=== PATIENT | male | born 1940 | race Caucasian/White ===

== ENCOUNTER 2022-03-15 09:41 | Outpatient (CLI) | payer MEDICARE, BC, SELFPAY ==
--- NOTE | 2022-03-15 10:15 | CRLHL7_ITS ---
For Patients: As a result of the Century Cures Act, medical imaging exams and procedure reports are released immediately into your electronic medical record. You may view this report before your referring provider. If you have questions, please contact your health care provider. INDICATION: Parkinsonism. TECHNIQUE: Multiplanar multisequence noncontrast MR images acquired through the brain. COMPARISON: None. FINDINGS: Prominence of the ventricles and sulci compatible with mild diffuse cerebral volume loss. No mass effect or midline shift. Scattered and patchy T2 FLAIR hyperintensities in the supratentorial white matter, typical for ouch-iy-sttmtkss chronic microvascular ischemic changes. No intracranial hemorrhage or pathologic extra-axial fluid collection. No diffusion restriction to suggest acute infarction. The major arterial flow voids of the skullbase are preserved. The globes are symmetric. Small left maxillary and left frontal sinus retention cysts. Mild paranasal sinus mucosal thickening. Minimal mastoid fluid bilaterally. IMPRESSION: 1. No acute infarction, mass effect, or intracranial hemorrhage. 2. Fcte-yg-ripsbzki chronic microvascular ischemic changes and mild diffuse cerebral volume loss. Dictated by Blyane Stoll MD @ 03/15/2022 12:50:51 PM (Electronically Signed)
== END 2022-03-15 09:42 | disposition home or self-care (01) ==
LOC: MRI 09:45
PROVIDERS: PCP Family Medicine; Visit Provider Psychiatry & Neurology Neurology
DX: G20 Parkinson's disease (principal); I67.82 Cerebral ischemia
CPT/HCPCS: 70551

== ENCOUNTER 2022-04-28 15:11 | Outpatient (CLI) | payer MEDICARE, BC, SELFPAY ==
--- NOTE | 2022-04-28 15:30 | CRLHL7_ITS ---
For Patients: As a result of the Century Cures Act, medical imaging exams and procedure reports are released immediately into your electronic medical record. You may view this report before your referring provider. If you have questions, please contact your health care provider. Indication: Bilateral leg weakness Technique: Multiplanar, multisequence, MRI of the lumbar spine, obtained without contrast. Comparison: MRI lumbar spine 05/10/2019 Findings: Lumbar levo curvature apex at L4. Grade 1 retrolisthesis at L2-3. No evidence of acute fracture. Multilevel degenerative endplate marrow signal changes, disc height loss, and facet arthropathy. The conus medullaris terminates at approximately L1. No suspicious findings in the prevertebral and paraspinal soft tissues. Included SI joints are unremarkable. T12-L1: No significant neural foramen or spinal canal stenosis. L1-L2: Disc bulge, facet arthropathy. No significant foraminal stenosis. Left lateral recess narrowing without significant central spinal canal stenosis. L2-L3: Retrolisthesis, disc bulge, facet arthropathy. No significant foraminal or spinal canal stenosis. L3-L4: Disc-osteophyte complex, facet arthropathy. No significant foraminal stenosis. Right lateral recess stenosis likely impinging the transiting right L4 nerve root. No central spinal canal stenosis. L4-L5: Disc-osteophyte complex, facet arthropathy. Mild left, moderate-severe right foraminal stenosis. Right lateral recess narrowing. No central spinal canal stenosis. L5-S1: Disc-osteophyte complex, facet arthropathy. Moderate right foraminal stenosis. No spinal canal stenosis. Impression: 1. No evidence of acute osseous abnormality. 2. Lumbar spondylosis, with levo curvature, apex at L4, and grade 1 retrolisthesis at L2-3. 3. At L3-4, right lateral recess stenosis with possible impingement of the transiting right L4 nerve root. 4. At L4-5, moderate-severe right foraminal stenosis with flattening of the exiting right L4 nerve root. 5. At L5-S1, moderate right foraminal stenosis. Dictated by Blanca Andrade MD @ 04/29/2022 1:07:06 PM (Electronically Signed)
== END 2022-04-28 15:12 | disposition home or self-care (01) ==
LOC: MRI 15:11
PROVIDERS: PCP Family Medicine; Visit Provider Family Medicine
DX: R29.898 Other symptoms and signs involving the musculoskeletal system (principal); M51.26 Other intervertebral disc displacement, lumbar region
CPT/HCPCS: 72148

== ENCOUNTER 2022-07-22 09:21 | Outpatient (CLI) | payer MEDICARE, BC, SELFPAY ==
--- NOTE | 2022-07-22 10:00 | CRLHL7_ITS ---
For Patients: As a result of the Century Cures Act, medical imaging exams and procedure reports are released immediately into your electronic medical record. You may view this report before your referring provider. If you have questions, please contact your health care provider. 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 TECHNIQUE: CTA head with contrast bolus tracking and 3D MIP reconstruction. FINDINGS: There is marked tortuosity of the intracranial vasculature. The distal cervical ICAs are tortuous, redundant and ectatic. There is otherwise normal opacification of the intracranial vasculature. There is no large vessel occlusion. No aneurysm is identified. IMPRESSION: No brain aneurysm. Please note that all CT scans at this facility use dose modulation, iterative reconstruction, and/or weight-based dosing when appropriate to reduce radiation dose to as low as reasonably achievable. Dictated by Mhaendra Cali MD @ 07/22/2022 1:39:45 PM (Electronically Signed)
[2022-07-22 10:07] LABS: Creatinine* 1.1 mg/dL (0.5-1.5); Estimated Glomerular Filt Rate 68 ml/min
== END 2022-07-22 09:22 | disposition home or self-care (01) ==
LOC: CT 09:24
PROVIDERS: PCP Family Medicine; Visit Provider Psychiatry & Neurology Neurology
DX: G52.9 Cranial nerve disorder, unspecified (principal); G20 Parkinson's disease
CPT/HCPCS: 36415; 70496; 82565; Q9967

== ENCOUNTER 2022-07-28 15:00 | Outpatient (RCR) | payer MEDICARE, BC, SELFPAY | END 2023-02-02 23:59 | disposition home or self-care (01) | PROVIDERS: PCP Family Medicine; Visit Provider Psychiatry & Neurology Neurology | DX: G20 Parkinson's disease (principal); R49.0 Dysphonia; Z51.89 Encounter for other specified aftercare | CPT/HCPCS: 36415; 70551; 92507; 92524; 97110; 97112; 97116; 97162; 97530 ==

== ENCOUNTER 2022-07-28 15:57 | Outpatient (REF) | payer MEDICARE, BC, SELFPAY | END 2022-07-28 15:58 | disposition home or self-care (01) | LOC: NPINS 15:57 | PROVIDERS: PCP Family Medicine; Visit Provider Psychiatry & Neurology Neurology | DX: G52.9 Cranial nerve disorder, unspecified (principal) | CPT/HCPCS: 36415; 83519 ==

== ENCOUNTER 2023-04-24 15:17 | Outpatient (CLI) | payer MEDICARE, BC, SELFPAY | END 2023-04-24 15:18 | disposition home or self-care (01) | PROVIDERS: PCP Family Medicine; Visit Provider Family Medicine | DX: C61 Malignant neoplasm of prostate (principal); Z13.1 Encounter for screening for diabetes mellitus; Z13.0 Encounter for screening for diseases of the blood and blood-forming organs and certain disorders involving the immune mechanism | CPT/HCPCS: 80048; 84153 ==

== ENCOUNTER 2023-09-22 13:42 | Outpatient (CLI) | payer MEDICARE, BC, SELFPAY | END 2023-09-22 13:43 | disposition home or self-care (01) | LOC: LKVREF 13:44 | PROVIDERS: PCP Family Medicine; Visit Provider Family Medicine | DX: R10.9 Unspecified abdominal pain (principal) | CPT/HCPCS: 80053 ==

== ENCOUNTER 2024-05-28 14:00 | Outpatient (CLI) | payer MEDICARE, BC, SELFPAY ==
--- OUTSIDE RECORDS SUMMARY | 2024-05-28 14:04 | XMS_ITS | Clinical Summary ---
Author Organization [facility] Address [address] [place] [address] Care Team Providers Care Loan Operations Manager Name Role Phone Unavailable Primary Care Provider Unavailabl e Source Comments You are receiving this document as you are listed as the primary care provider,follow-up provider, or the patient has been referred to you for consultation.This is in compliance with the Medicare and[facility] E[facility] Incentive [facility],which states Providers who transition their patient to another setting of careor provider of care or refers their patient to another provider of care shouldprovide summary care record for each transition of care or referral. [employer] Allergies No known active allergies Medications Medication Sig Dispensed Refills Start Date End Date Status aspirin 81 MG chewable tablet Chew and swallow 1 Tablet (81 mg) by mouth daily. 07/26/2022 Active ipratropium (ATROVENT) 0.06 % nasal solution Place 2 Sprays into both nostrils three times a day. 09/25/2022 Active omega-3 fatty acids (FISH OIL) 1000 MG capsule Take 2 Capsules (2,000 mg) by mouth daily. Active Multiple Vitamins-Iron (MULTIVITAMIN/IRON OR) Active Garlic 2 MG Active SHARK CARTILAGE OR Active carbidopa-levodopa (SINEMET) 25-100 MG tablet take 2 tablets by mouth three times daily 540 Tablet 3 12/06/2023 Active celecoxib (CELEBREX) 200 MG capsule Take 1 Capsule (200 mg) by mouth daily. 01/16/2024 Active Active Problems Problem Noted Date Diagnosed Date Parkinson disease 11/29/2022 Family History Medical History Relation Name Comments Parkinsons Negative Family History Social History Tobacco Use Types Packs/Day Years Used Date Smoking Tobacco: Never Smokeless Tobacco: Never Tobacco Cessation:Counseling Given: Not Answered Alcohol Use Standard Drinks/Week Comments Not Currently 0 (1 standard drink = 0.6 oz pur e alcohol) Sex and Gender Information Value Date Recorded Sex Assigned at Not on file Gender Identity Not on file Sexual Orientation Not on file Last Filed Vital Signs Vital Sign Reading Time Taken Comments Blood Pressure 137/83 12/05/2023 9:01 AM CDT Pulse 79 12/05/2023 9:01 AM CDT Temperature - - Respiratory Rate 12 12/05/2023 9:01 AM CDT Oxygen Saturation - - Inhaled Oxygen Concentration - - Weight - - Height - - Body Mass Index - - Plan of Treatment Upcoming Encounters Date Type Department Care Team (Late st Contact Info) Description 06/18/2024 9:15 AM SHOW WORKER Appointment [facility] [address] [place] [address] Chalo Schrader MD [address] [place], [place] [id number] Health Maintenance Due Date Last Done Comments Medicare Annual Wellness Visit 1940 RSV (1 - 1-dose 75+ series) 2017 COVID-19 Vaccine ( season) 2024 04/12/2022, 10/29/2021, 04/23/2021, Additional history exists Influenza (#1) 2024 04/06/2023, 03/18, 04/23/2021, Additional history exists DTaP/Tdap/Td (3 - Tdap) 04/24/2033 04/24/20 23, 05/30/2012, 09/05/2007 Pneumococcal 65+ Yrs Completed 08/05/2014, 04/16/2011, 07/07/2010, Additional history exists Zoster/Shingles Completed 02/19/2018, 10/16, 10/23/2007 HepA Aged Out No longer eligi ble based on patient's age to complete this topic HepB Aged Out No longer eligi ble based on patient's age to complete this topic Hib Aged Out No longer eligi ble based on patient's age to complete this topic IPV (Polio) Aged Out No longer eligi ble based on patient's age to complete this topic Infant RSV Aged Out No longer eligi ble based on patient's age to complete this topic MCV4 Aged Out No longer eligi ble based on patient's age to complete this topic
--- OUTSIDE RECORDS SUMMARY | 2024-05-28 14:04 | XMS_ITS | Referral Summary ---
Author Organization [facility] Address [address] [place] [address] Care Team Providers Care Ornamental Plasterer Helper Name Role Phone Unavailable Primary Care Provider Unavailabl e Source Comments Patient records contain information from all sites at [facility]. For routine questions regarding patient records, call [phone] during business hours, M-F 8:00 AM - 5:00 PM Central Time. Record requests for emergency care only can be directed to [phone] at any time.[facility] Encounters Date Type Department Care Team Description 05/21/2024 7:00 AM SADDLE STITCH OPERATOR Comprehensive Visit Department of Physical Medicine and Rehabilitation in [place], [place] [address] [place] [address] Aleks Pisano M.D. Aleks Abrams, P.T. Arthritis Shoulder (Primary Dx) from Last 3 Months Social History Tobacco Use Types Packs/Day Years Used Date Smoking Tobacco: Never Nutrition Answer Date Recorded Nutrition: EVOO Fat Source Unknown 03/07 Nutrition: Servings of Fruits/Vegetables per Day Not on file 03/07/2022 Dental Answer Date Recorded Dental: Regular Dentist Unknown 03/07/20 Sex and Gender Information Value Date Recorded Sex Assigned at Not on file Legal Sex Male 6:05 AM SADDLE STITCH OPERATOR Gender Identity Not on file Sexual Orientation Not on file Last Filed Vital Signs Vital Sign Reading Time Taken Comments Blood Pressure 122/78 09/13/2012 12:52 PM SADDLE STITCH OPERATOR Vital sign result from Clinical Notes. Pulse 61 09/13/2012 12:52 PM SADDLE STITCH OPERATOR Vital sign result from Clinical Notes. Temperature - - Respiratory Rate - - Oxygen Saturation - - Inhaled Oxygen Concentration - - Weight 62.6 kg (138 lb 0.1 oz) 09/13/2012 12:52 PM SADDLE STITCH OPERATOR Vital sign result from Clinical Notes. Height 159 cm (5' 2.6) 04/24/2012 1:11 PM CDT Vital sign result from Clinical Notes. Body Mass Index 24.76 04/24/2012 1:11 PM CDT Plan of Treatment Upcoming Encounters Date Type Department Care Team (Late st Contact Info) Description 05/30/2024 7:45 AM SADDLE STITCH OPERATOR Clinical Support Department of Physical Medicine and Rehabilitation in [place], [place] [address] [place] [phone] Aleks Pisano M.D. [address] [place] [address] Aleks Abrams, P.TSimran [address] [place] [phone] 06/06/2024 7:45 AM SADDLE STITCH OPERATOR Clinical Support Department of Physical Medicine [facility] Rehabilitation in [place], [place] [address] [place] [address] Aleks Pisano M.D. [address] [place] [address] Aleks Abrams, P.TSimran [address] [place] [phone] 06/14/2024 7:45 AM SADDLE STITCH OPERATOR Clinical Support Department of Physical Medicine [facility] Rehabilitation in [place], [place] [address] [place] [phone] Aleks Pisano M.D. [address] [place] [address] Aleks Abrams, P.T. [address] [place] [phone] 06/20/2024 7:45 AM SADDLE STITCH OPERATOR Clinical Support Department of Physical Medicine and Rehabilitation in [place], [place] [address] [place] [phone] Aleks Pisano M.D. [address] [place] [phone] Aleks Abrams P.T. [address] [place] [phone] Insurance [facility] MEDICARE
--- OUTSIDE RECORDS SUMMARY | 2024-05-28 14:04 | XMS_ITS | Clinical Summary ---
Author Organization [facility] Address [address] [place] [address] Care Team Providers Care Sales Professional Bilingual Name Role Phone Unavailable Primary Care Provider Unavailabl e Source Comments Patient records contain information from all sites at [facility]. For routine questions regarding patient records, call [phone] during business hours, M-F 8:00 AM - 5:00 PM Central Time. Record requests for emergency care only can be directed to [phone] at any time.[facility] Encounters Date Type Department Care Team Description 05/21/2024 7:00 AM SQL DATABASE DEVELOPER Comprehensive Visit Department of Physical Medicine and Rehabilitation in [place], [place] [address] [place] [address] Aleks Pisano M.D. Aleks Abrams, P.T. Arthritis [...] on file Legal Sex Male 6:05 AM SQL DATABASE DEVELOPER Gender Identity Not on file Sexual Orientation Not on file Last Filed Vital Signs Vital Sign Reading Time Taken Comments Blood Pressure 122/78 09/13/2012 12:52 PM SQL DATABASE DEVELOPER Vital sign result from Clinical Notes. Pulse 61 09/13/2012 12:52 PM SQL DATABASE DEVELOPER Vital sign result from Clinical Notes. Temperature - - Respiratory Rate - - Oxygen Saturation - - Inhaled Oxygen Concentration - - Weight 62.6 kg (138 lb 0.1 oz) 09/13/2012 12:52 PM SQL DATABASE DEVELOPER Vital sign result from Clinical Notes. Height 159 cm (5' 2.6) 04/24/2012 1:11 PM CDT Vital sign result from Clinical Notes. Body Mass Index 24.76 04/24/2012 1:11 PM CDT Plan of Treatment Upcoming Encounters Date Type Department Care Team (Late st Contact Info) Description 05/30/2024 7:45 AM SQL DATABASE DEVELOPER Clinical Support Department of Physical Medicine and Rehabilitation in [place], [place] [address] [place] [phone] Aleks Pisano M.D. [address] [place] [address] Aleks Abrams, P.TSimran [address] [place] [phone] 06/06/2024 7:45 AM SQL DATABASE DEVELOPER Clinical Support Department of Physical Medicine and Rehabilitation in [place], [place] [address] [place] [address] Aleks Pisano M.D. [address] [place] [address] Aleks Abrams, P.TSimran [address] [place] [phone] 06/14/2024 7:45 AM SQL DATABASE DEVELOPER Clinical Support Department of Physical Medicine and Rehabilitation in [place], [place] [address] [place] [phone] Aleks Pisano M.D. [address] [place] [address] Aleks Abrams, P.T. [address] [place] [phone] 06/20/2024 7:45 AM SQL DATABASE DEVELOPER Clinical Support Department of Physical Medicine and Rehabilitation in [place], [place] [address] [place] [address] Aleks Pisano M.D. [address] [facility] [place] [phone] Aleks Abrams P.T. [address] [facility] [place] [phone] Health Maintenance Due Date Last Done Comments Depression Screening (Annual PHQ-2) 07/17/2023 Fall Risk Screen (Annual) 07/17/2023 COVID-19 Vaccine ( season) 2024 04/12/2022, 10/29/2021, 04/23/2021, Additional history exists Influenza Vaccine (#1) 2024 3, 04/12/2022, 04/23/2021, Additional history exists DTaP,Tdap,and Td Vaccines (3 - Td or Tdap) 04/24/2033 04/24/2023, 05/30/2012, 09/05/2007 Pneumococcal vaccine (65+ years) Completed 08/05/2014, 04/16/2011, 07/07/2010, Additional history exists Zoster Vaccines Completed 02/19/2018, 10/16, 10/23/2007 RSV vaccine - (32-36 weeks) or 60+ years Completed 08/01/2023 IPV Vaccines Aged Out No longer eligi ble based on patient's age to complete this topic Insurance [facility] MEDICARE
--- OUTSIDE RECORDS SUMMARY | 2024-05-28 14:04 | XMS_ITS ---
Author Organization [facility] Address [address] [place] [address] Care Team Providers Care Oil Pipe Inspector Name Role Phone Unavailable Unavailable Unavailable Surgery Details Not on file Complications Check Surgery Details section. Procedure Estimated Blood Loss Check Surgery Details section. Procedure Findings Check Surgery Details section. Procedure Specimens Taken Check Surgery Details section.
--- OUTSIDE RECORDS SUMMARY | 2024-05-28 14:04 | XMS_ITS | Encounter Summary ---
Author Organization [facility] Address [address] [place] [address] Care Team Providers Care Freight Service Inspector Name Role Phone Unavailable Primary Care Provider Unavailabl e Reason for Referral * Physical Therapy (Routine) - Authorized Specialty Diagnoses / Procedures Referred By Matthew brandt Referred To Contact Diagnoses Arthritis Shoulder Procedures PT Ongoing treatment Aleks Pisano M.D. [address] [place] [address] Phone: tel: fax: [facility] Region Referral ID Status Reason Start Date Expiration Date V isits Requested Visits Authorized [id number] Authorized 05/21/2024 05/21/2025 99 99 GE CONTROL SPECIALIST Reason for Visit * Physical Therapy (Routine) - Authorized Specialty Diagnoses / Procedures Referred By Matthew brandt Referred To Contact Diagnoses Arthritis Shoulder Procedures PT Evaluate and treat Aleks Pisano M.D. [address] [place] [address] Phone: tel: fax: [facility] Referral ID Status Reason Start Date Expiration Date V isits Requested Visits Authorized [id number] Authorized 05/09/2024 05/09/2025 99 99 Encounter Details Date Type Department Care Team (Latest Contact Info) Description 05/21/2024 7:00 AM CHANGE CONTROL SPECIALIST Comprehensive Visit Department of Physical Medicine and Rehabilitation in [place], [place] [address] [place] [address] Aleks Pisano M.D. [address] [facility] [address] [place] [phone] Aleks Abrams P.T. [address] [facility] [address] Arthritis Shoulder (Primary Dx) Social History Tobacco Use Types Packs/Day Years Used Date Smoking Tobacco: Never Nutrition Answer Date Recorded Nutrition: EVOO Fat Source Unknown 03/07 Nutrition: Servings of Fruits/Vegetables per Day Not on file 03/07/2022 Dental Answer Date Recorded Dental: Regular Dentist Unknown 03/07/20 Sex and Gender Information Value Date Recorded Sex Assigned at Not on file Legal Sex Male 6:05 AM CHANGE CONTROL SPECIALIST Gender Identity Not on file Sexual Orientation Not on file documented as of this encounter Progress Notes * Aleks Abrams P.T. - 05/21/2024 7:00 AM CST Physical Therapy Outpatient Treatment Note By co-signing this note, the provider certifies the therapy being provided to this patient is reasonable and necessary for the diagnosis or treatment of this patient. Physician Signature: Date Print Name: SUBJECTIVE Patient's Name: Sami Mckinley Referring Provider: Aleks Pisano M.D. Visit Diagnosis: 1. Arthritis Shoulder Reason for Referral: Left shoulder pain Onset Date: 05/08/24 Payor: MEDICARE / Plan: MEDICARE A AND B / Product Type: Medicare / PT Next Certification Date: 07/22/24 [facility] Visit Count: 1 Diagnostic Tests: X-rays Precautions Other Precautions: Patient avoid postures and positions of impingement and pain History of Present Illness: Pleasant 84-year-old male patient to PT with progressive onset of soreness within the left shoulder. Diagnostics demonstrate osteoarthritic changes with increased crepitusand pain. Patient having difficult time sleeping. Challenges of overhead reaching. Dressing changesbathing grooming continue to be challenging as well. Patient has not appreciated any areas of significant weakness. No referral pain distal to the elbow. No neck pain. No previous surgical pathology regards to shoulder elbow. Carpal tunnel surgery completed bilaterally. No specific area of trauma associated with the left shoulder. Patient reports he did have a fall that was spontaneous while at home inside where he fell backwards without residuals. Dominant Hand: Right Family/Caregiver Present: No Patient/Caregiver Goals: Maximize abilities within the left shoulder minimize pain. Patient comments: Patient questions surgical intervention of replacement and success rate. Patient will utilize Aleve and Tylenol as needed. OBJECTIVE Pain: Pain Assessment Pain Assessment: FACES Pain Scale-Revised Pain Score: 4 Faces Pain Scale: 4 Pain Type: Chronic pain, Positional pain, Deep somatic pain, Superficial somatic pain Pain Location: Shoulder Pain Orientation: Left Pain Radiating Towards: No radicular symptoms Patient presents with FOTO functional status score of 41 (MCII: 23 and MDC: 4) indicating general function at stage 2. The risk adjusted functional status score is 55. Patient is predicted to have 20points of functional status change in 13 visits over 62 days based on normative data. Observation/Inspection: Assessment of the left shoulder shows significant crepitus with passive andactive range of motion. Continued compensatory reports noted with forward elevation. Cervical rangeof motion is within functional limits for 84-year-old male. Balance/Posture/Physical Status: Forward head rounded shoulders. Tight Martinez minor. Palpation: Generalized soreness appreciable crepitus with range of motion Range of Motion: PROM Assessment PROM Assessment: SCARLETT PANTOJA PROM (degrees) L Shoulder Flexion 0-170: 140 Degrees L Shoulder Extension 0-60: 20 Degrees L Shoulder ABduction 0-140: 90 Degrees L Shoulder Internal Rotation 0-70: 70 Degrees L Shoulder External Rotation 0-90: 25 Degrees L Elbow Flexion/Extension 0-135-150: 135 ?? L Forearm Pronation 0-80-90: 70 Degrees L Forearm Supination 0-80-90: 70 Degrees L Wrist Flexion 0-80: 70 Degrees L Wrist Extension 0-70: 70 Degrees L Wrist Radial Deviation 0-20: 20 Degrees L Wrist Ulnar Deviation 0-30: 20 Degrees Strength:Strength Assessment Strength Assessment: SCARLETT PANTOJA Strength L Shoulder Flexion: 4/5 L Shoulder Extension: 4/5 L Shoulder ABduction: 4/5 L Shoulder Internal Rotation: 4/5 L Shoulder External Rotation: 4/5 L Shoulder Horizontal ABduction: 4/5 L Shoulder Horizontal ADduction: 4/5 L Elbow Flexion: 4/5 L Elbow Extension: 4/5 L Forearm Pronation: 4/5 L Forearm Supination: 4/5 L Wrist Flexion: 4/5 L Wrist Extension: 4/5 L Wrist Radial Deviation: 4/5 L Wrist Ulnar Deviation: 4/5 Neuro Screen/Motor Control: Cognition Arousal/Alertness: Appropriate responses to stimuli Orientation: Oriented X4 Safety/Judgment: Addressed, no concerns noted Vision/Sensation Basic Assessment Baseline Vision/Correction: Wears glasses all the time Light Touch: No deficits Joint Mobility: Decreased joint mobility of the glenohumeral joint with posterior inferior glides. Special Tests: Positive for impingement. Positive for capsular restriction. Ortho Exam Cognition Arousal/Alertness: Appropriate responses to stimuli Orientation: Oriented X4 Safety/Judgment: Addressed, no concerns noted TREATMENT Treatment today consisted of: Therapeutic Exercise: UBE completed level for x4 minutes. Supine cane press x 15 repetitions. Cane flexion x 15 repetitions. Seated shoulder row red Thera-Band x 20 repetitions. Modalities: Hot pack was placed to the left shoulder for 10 minutes post treatment Home Exercise Program/Education: Patient will complete cane press flexion as well as shoulder row. Patient reports good HEP compliance. Assessment Clinical Impression: Patient presents with glenohumeral joint restriction and osteoarthritic changes impacting crepitus and pain within the left shoulder. Impacting his ability to complete bathing grooming, dressing changes, ADL activities of overhead reaching as well as sleeping. Rehab Potential: Good Comorbid Conditions: Arthritis Personal Factors: Age Clinical Presentation: Stable Examination elements: 1-2 Clinical Decision Making: Low complexity clinical decision making Functional Goals and Timeframes: PT Goal #1: Patient be able to do all dressing changes with less than 1/10 pain PT Goal #1 to be achieved by: 07/22/24 PT Goal #1 Status: Ongoing PT Goal #2: Patient be able to reach up into the cupboard remove cup or glass without exacerbation of pain PT Goal #2 to be achieved by: 07/22/24 PT Goal #2 Status: Ongoing PT Goal #3: Patient be able to achieve 6-7 hours of sleep without exacerbation of left shoulder pain. PT Goal #3 to be achieved by: 07/22/24 PT Goal #3 Status: Ongoing PT Goal #4: Patient will demonstrate independence of home exercise program for left rotator cuff strengthening parascapular stability PT Goal #4 to be achieved by: 07/22/24 PT Goal #4 Status: Ongoing Plan Physical Therapy Attestation Statement: Patient agrees with the plan of care and goals. Plan: Plan of care initiated Number of Outpatient PT Visits: 12 PT Outpatient Duration (days): 60 days PT Frequency: 1 time per week Plan for next session: Treatment/Interventions: Therapeutic exercise, Manual therapy, Therapeutic modalities as needed Time Spent with Patient Evaluations PT Eval - Low Complexity: 20 min Therapeutic Interventions Therapeutic Exercise (min): 15 min Time Tracking Total Timed Units (min): 15 min Total Treatment Time (min): 35 min GE CONTROL SPECIALIST documented in this encounter Plan of Treatment Upcoming Encounters Date Type Department Care Team (Late st Contact Info) Description 05/30/2024 7:45 AM CHANGE CONTROL SPECIALIST Clinical Support Department of Physical Medicine and Rehabilitation in [place], [place] [address] [place] [address] Aleks Pisano M.D. [address] [place] [phone] Aleks Abrams P.T. [address] [place] [address] 06/06/2024 7:45 AM CHANGE CONTROL SPECIALIST Clinical Support Department of Physical Medicine and Rehabilitation in [place], [place] [address] [place] [address] Aleks Pisano M.D. [address] [place] [address] Aleks Abrams P.T. [address] [place] [address] 06/14/2024 7:45 AM CHANGE CONTROL SPECIALIST Clinical Support Department of Physical Medicine and Rehabilitation in [place], [place] [address] [place] [address] Aleks Pisano M.D. [address] [place] [phone] Aleks Abrams P.T. [address] [place] [phone] 06/20/2024 7:45 AM [facility] Clinical Support Department of Physical Medicine and Rehabilitation in [place], [place] [address] [place] [phone] Aleks Pisano M.D. [address] [place] [address] Aleks Abrams P.T. [address] [place] [phone] documented as of this encounter Visit Diagnoses Diagnosis Arthritis Shoulder- Primary documented in this encounter
== END 2024-05-28 14:01 | disposition home or self-care (01) ==
PROVIDERS: PCP Family Medicine; Visit Provider Family Medicine
DX: Z00.00 Encounter for general adult medical examination without abnormal findings (principal); R53.83 Other fatigue; R73.09 Other abnormal glucose; C61 Malignant neoplasm of prostate; Z13.6 Encounter for screening for cardiovascular disorders
CPT/HCPCS: 80048; 80061; 84153

== ENCOUNTER 2025-03-21 15:03 | Outpatient (CLI) | payer MEDICARE, BC, SELFPAY | END 2025-03-21 15:04 | disposition home or self-care (01) | PROVIDERS: PCP Family Medicine; Visit Provider Family Medicine | DX: R03.0 Elevated blood-pressure reading, without diagnosis of hypertension (principal); C61 Malignant neoplasm of prostate; R60.9 Edema, unspecified; Z13.29 Encounter for screening for other suspected endocrine disorder | CPT/HCPCS: 80048; 84153; 84443 ==

== ENCOUNTER 2025-05-21 12:29 | Emergency (ER) | payer MEDICARE, BC, SELFPAY ==
--- OUTSIDE RECORDS SUMMARY | 2025-01-03 12:00 | XMS_ITS | Encounter Summary ---
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) Chalo Schrader MD [address] [place] [address] Phone: tel: fax: Referral ID Status Reason Start Date Expiration Date V isits Requested Visits Authorized [id number] New Request 12/03/2024 12/03/2025 1 1 Encounter Details Date Type Department Care Team (Latest Contact Info) Description 01/03/2025 1:00 PM CDT Office Visit [facility] at [facility] Physical Therapy [address] [address] Charlotte Buckley OTR/Nicky [address] [place] [address] 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) (Primary Dx); Alteration in instrumental activities of daily living (IADL) Social History Tobacco Use Types Packs/Day Years Used Date Smoking Tobacco: Never Smokeless Tobacco: Never Alcohol Use Standard Drinks/Week Comments Not Currently 0 (1 standard drink = 0.6 oz pur e alcohol) Sex and Gender Information Value Date Recorded Sex Assigned at Not on file Legal Sex Male 11:10 AM CDT Gender Identity Not on file Sexual Orientation Not on file documented as of this encounter Progress Notes * Charlotte Buckley, OTR/L - 01/03/2025 1:00 PM CDT [facility] Pre-Driving Progress/Discharge Summary Initial Certification Period: 12/30/2024 to 02/28/25 Referring Provider: Chalo Schrader Visit Diagnosis: 1. 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 Alteration in instrumental activities of daily living (IADL) Precautions: Parkinson's Orders: Evaluation and treat. Onset/Referral Date: 12/03/2024 SUBJECTIVE Patient arrives to session and expresses things are about the same. Sami expresses his back is more sore at session due to working in the yard picking up branches and leaves. His is present forsession and reports more forgetfulness occurring. OBJECTIVE Observation: alert, cooperative, oriented x4 Physical Skills: NECK/TRUNK ROM: WFL UPPER EXTREMITY ROM: WFL Limitations: not able to lift LUE due to shoulder FINGER FLEXION/DIRECTOR OF DIGITAL MARKETING: WFL FUNCTIONAL MOBILITY: Clinical observations include: Patient demonstrates safe transfer to/from chair in room and stable sitting while completing Dynavision board with no LOB ALTERNATING FOOT-TAP TEST: Time: 4.80 Risk level: low (less than 5 seconds indicates low risk) moderate (5-7 seconds indicates moderate risk) high (greater than 7 seconds indicates high risk) REACTION SPEED VIA DYNAVISION: DYNAVISION: (Scores in parenthesis are lowest recommended score for driving reaction time) *completed test sitting Mode A (52): 50 per minute (45) Mode A with 1 digit distractor (35): 32 per minute with 8/10 digits seen. Mode B (42): 32 per minute. Vision: VISUAL HISTORY THAT MAY IMPACT DRIVING: double vision when turing to the Right MOST RECENT EYE EXAM: 6 months GLASSES: Yes: trifocals DISTANCE ACUITY - CORRECTED: Snellen Chart: 20/40 VISUAL YAP: Intact via confrontation testing: VISUAL PERCEPTION: Appropriate via Dynavision Cognition: COGNITIVE SCREEN: [place] Cognitive Assessment (MoCA): The patient scored 25/ 30 Normal = 26-30 normal Mild cognitive impairment = 19-25 Moderate to severe = 0-18 Comment/Areas of deficit: Visuospatial/executive (4/5), naming (3/3), attention (6/6), language (2/3), abstraction (2/2), delayed recall (1/5), orientation (6/6). +1 education Risk level: low (26+/30 indicates low risk) moderate (20-25/30 indicates moderate risk) high (<19/30 indicates high risk) VISUAL PROCESSING/ATTENTION SKILLS: Trailmaking: Part A: raw score 56, percentile 70 Risk level: low (less than 39 seconds indicates low risk) moderate (40-51 seconds indicates moderate risk) high (greater than 60 seconds indicates high risk) Trailmaking: Part B: raw score 85, percentile 85 Risk level: low (less than 85 seconds indicates low risk) moderate (86-180 seconds indicates moderate risk) high (greater than 180 seconds indicates high risk) [email or web address] Maze Test: 47 seconds, 0 errors Risk level: low (<60 sec, 0 errors indicates low risk) moderate (<60 seconds, 1 error indicates moderate risk) high (60 sec, 2+ errors or 61+ seconds with/without errors indicates high risk) Standardized Test Results: results above OT Outcomes: Based on performance and deficits, recommended safe to return driving pending referring provider's approval with the following safety recommendations: avoid highways and freeways, no lane hour traffic, avoid distractions when driving, fair weather driving, local driving only, during the day time only. Today's Intervention/Education Provided: Self Care/Home management training x 58 minutes: -Educate on importance of advocacy of own personal needs, providing specific examples to assist with increasing personal well-being and QOL -Educated patient on recommendations to utilize everyday to increase overall QOL and functional performance in ADLs to adapt to cognitive changes. -Educate on progression and areas of decline with Parkinson's and adaptations that might be appropriate to consider. Timed Code Treatment Minutes: 58 Total Treatment Minutes: 58 ASSESSMENT Pt has been doing well since last session. Pt participates in all therapeutic activities, with motivation to continue increasing memory and overall continue to function as independent as possible with changes and progression of Parkinson's. Recommendations: Continue skilled occupational therapy Driving: Pt appears safe to resume/continue driving pending MD approval. Recommend pt drive with the following restrictions based on deficits: Based on performance and deficits, recommended safe to return driving pending referring provider's approval with the following safety recommendations: avoid highways and freeways, no lane hour traffic, avoid distractions when driving, fair weather driving, local driving only, during the day time only. Significant Impairments: decreased cognition, decreased strength, decreased endurance Functional Limitations: decreased functional mobility, Patient demonstrates safe ambulation in/out clinic with no AD needed and/or no LOB Goals/Functional Outcomes: -Patient/family will verbalize understanding of driving limitations and recommendations by discharge.-MET -Pt will increase BUE columnist and pinch strength by increasing lbs of strength measured for functionalperformance for ADLs/IADLs in 8 weeks. -Pt will increase fine motor coordination as evidence by completing 9 Hole Peg test and decreasing time for bilateral hands by 2-3 seconds in 8 weeks. -Pt will demonstrate/verbalize understanding of HEP to complete to increase strength and overall functional performance in BUE for ADLs/IADLs in 8 weeks.-MET PLAN DC from OT Occupational Therapy Discharge Summary Outcome measures at discharge: No outcome data collected. Attainment of goals: See above Patient Compliance with Therapy: Patient was compliant with attendance and therapy recommendations. Discharge recommendations: Patient will continue to work independently with home program/self management strategies. Therapist instructed patient to call with questions or concerns. 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
--- OUTSIDE RECORDS SUMMARY | 2025-04-08 12:30 | XMS_ITS | Encounter Summary ---
Author Organization [facility] Address [address] [place] [address] Care Team Providers Care Family Medicine Physician Name Role Phone Unavailable Primary Care Provider Unavailabl e Reason for Referral * Physical Therapy (Routine) - Authorized Specialty Diagnoses / Procedures Referred By Matthew brandt Referred To Contact Diagnoses Repeated Falls Imbalance Non Orthopedic Procedures PT Ongoing treatment Aakash Schrader M.D. [address] [place] [address] Phone: tel: fax: [facility] Referral ID Status Reason Start Date Expiration Date V isits Requested Visits Authorized [id number] Authorized 04/08/2025 07/09/2026 99 99 Reason for Visit * Appointment Request (Routine) - Closed Specialty Diagnoses / Procedures Referred By Matthew brandt Referred To Contact Physical Medicine and Rehabilitation Diagnoses Parkinson's Disease Without Dyskinesia, Without Mention Of Fluctuations ([facility]) Aakash Schrader M.D. [address] [place] [address] Phone: tel: fax: Referral ID Status Reason Start Date Expiration Date Visits Re quested Visits Authorized [id number] Closed 03/12/2025 06/12/2026 1 1 Encounter Details Date Type Department Care Team (Latest Contact Info) Description 04/08/2025 1:30 PM CDT Comprehensive Visit Department of Physical Medicine and Rehabilitation in [place], [place] [address] [place] [phone] Stacie Knight, P.T. 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 - 04/08/2025 1:30 PM CDT Physical Therapy Outpatient Evaluation/Treatment By co-signing this note, the provider certifies the therapy being provided to this patient is reasonable and necessary for the diagnosis or treatment of this patient. Physician Signature: Date Print Name: SUBJECTIVE Patient's Name: Sami Mckinley Referring Provider: Aakash Schrader M.D. Visit Diagnosis: 1. Repeated Falls 2. Imbalance Non Orthopedic Reason for Referral: Balance and recent falls Onset Date: 03/07/25 Payor: MEDICARE / Plan: MEDICARE A AND B / Product Type: Medicare / [employer] Visit Count: Visit count could not be calculated. Make sure you are using a visit which is associated with an episode. PERTINENT MEDICAL / SURGICAL HISTORY: Problem List[1] Surgical History[2] Precautions Other Precautions: Left shoulder history Patient presents to outpatient physical therapy for evaluation of symptoms including: Imbalance History of falls Low back pain Parkinson's Overall patient reports status is progressing. History of Present Illness:Patient is a 85-year-old male who presents today with history of left shoulder pain, low back pain, Parkinson's, and increasing number of falls recently. Patient indicates his legs feel weaker and he feels more unsteady overall. Patient indicates he caught his toe while out in the garden and fell with no injury, and most recently was sitting in a lawn chair in the yd which tipped sending him to the ground with no injuries. Aggravating Factors: Uneven surfaces Relieving Factors: Mobility, even surfaces Previous Treatments: None Prior Function/Occupational Profile: Prior Mobility/Functional Transfers Level of [place]: Independent Gait Devices/Wheelchair Used: Four wheeled walker Gait Devices/Wheelchair Used Comments: Patient utilizes 4 wheeled walker during the night for mobility for safety Prior Function/Occupational Profile Dominant Hand: Right Lives With: Spouse Receives Help From: Family ADL Assistance: Independent IADL/Homemaking Assistance: Independent Driving: Independent Occupational Role: Retired Home Living Type of Home: House Home Layout: Two level Home Layout Comments: Patient's treadmill is located in the basement Home Access: Stairs to enter with rails, Stairs to alternate level with rails Entrance Stairs: Number of Steps: 3 Alternate Level Stairs: Number of Steps: 12 Home Equipment Gait Devices Owned: Four-wheeled walker Family/Caregiver Present: No Additional Staff Present During Session: None Patient goals:Improve strength in his legs, reduce back pain in the morning Precautions Other Precautions: Left shoulder history Fall Risk (65 and older) Fall in the last 12 months: Yes Did you have an injury with the fall?: No Are you fearful of falling?: No OBJECTIVE REVIEW OF SYSTEMS History obtained from the patient PHYSICAL EXAM Pain: 0/10 at onset of appointment Patient presents with FOTO functional status score of 69 (MCII: and MDC: ) indicating general function at stage . The risk adjusted functional status score is 55. Patient is predicted to have 2 points of functional status change in 19 visits over 90 days based on normative data. Observation/Inspection: Patient is very pleasant 85-year-old male Balance/Posture/Physical Status: Patient stance in a forward flexed posture with wide base of support and ambulates with same posture Range of Motion: ROM - Upper Extremity Screen: Impaired left ROM - Upper Extremity Screen Comments: Left upper extremity impaired with all shoulder range of motion ROM - Lower Extremity Screen: Impaired right ROM - Lower Extremity Screen Comments: Decreased knee extension Strength:Strength - Lower Extremity Screen: Impaired right & left Strength Assessment Strength Assessment: RLE RLE Strength R Hip Flexion: 4/5 R Hip Extension: 4/5 R Hip ABduction: 5/5 R Hip ADduction: 5/5 R Hip External Rotation: 5/5 R Hip Internal Rotation: 5/5 R Knee Flexion: 4/5 R Knee Extension: 5/5 R Ankle Dorsiflexion: 5/5 R Ankle Plantar Flexion: 5/5 R Ankle Inversion: 4/5 R Ankle Eversion: 4/5 LLE Strength L Hip Flexion: 5/5 L Hip Extension: 4/5 L Hip ABduction: 5/5 L Hip ADduction: 5/5 L Hip External Rotation: 5/5 L Hip Internal Rotation: 5/5 L Knee Flexion: 4/5 L Knee Extension: 5/5 L Ankle Dorsiflexion: 5/5 L Ankle Plantar Flexion: 5/5 L Ankle Inversion: 4/5 L Ankle Eversion: 4/5 Neuro Screen/Motor Control: Cognition Arousal/Alertness: Appropriate responses to stimuli Initiation: No difficulty with initiation Orientation: Oriented X4 Special Tests: Five Times Sit to Stand Time: 12.59 with poor strategies including increased knee flexion in did not complete sit accurately Time over 15 seconds indicates moderate fall risk for recurrent falls. THU=4.2 sec Normative Data for Community Dwelling: Age Range Time in seconds 60-69 years old 11.4 70-79 years old 12.6 80-89 years old 14.8 Single leg stand eyes open: Right 3 seconds Left 8.47 seconds Single leg stand eyes closed: Right 2 seconds Left 2 seconds Attempt tandem stand patient unable to maintain balance without use of wall to stabilize Ortho Exam Cognition Arousal/Alertness: Appropriate responses to stimuli Initiation: No difficulty with initiation Orientation: Oriented X4 TREATMENT Treatment today consisted of: Therapeutic Exercise: Introduce home exercise program including in hook lying pelvic tilt bridge x5 with rest in between repetitions secondary to increased hamstring cramping verbal counting of 5 seconds for correct strategy In supine position lower trunk rotations for low back area x5 each direction with verbal cues to slow down \in supine position overhead shoulder flexion with single end cane x5 for increased thoracic mobility and extension of the shoulders for overall posture Eccentric squat x 5 demonstration and verbal Education for correct strategies were reinforced Using high counter forward flexed lumbar spine stretch 3 x 10nd count Home Exercise Program/Education: Access Code: [email or web address] URL: [email or web address] Date: 04/08/2025 Prepared by: Stacie Knight Exercises - Eccentric Squat - 3-42 x daily - 7 x weekly - 1 sets - 5 reps - Pelvic Tilt - 2 x daily - 7 x weekly - 1 sets - 10 reps - Beginner Bridge - 2 x daily - 7 x weekly - 1 sets - 5 reps - 5 hold - Lower Trunk Rotations - 2 x daily - 7 x weekly - 1 sets - 5 reps - Supine Shoulder Flexion Extension AAROM with Dowel - 2 x daily - 7 x weekly - 1 sets - 5-10 reps - Standing Lumbar Spine Flexion Stretch Counter - 2 x daily - 7 x weekly - 1 sets - 3-5 reps - 10 hold Assessment Clinical Impression: Patient presents to physical therapy with signs and symptoms consistent with repeated falls and imbalance. Impairments: Decreased lower extremity strength, decreased general range of motion lower extremity,history of low back pain impacting patient's posture and ambulation and flexibility, decreased leftshoulder strength and range of motion impacting patient's posture, decreased balance Functional deficits: Decreased tolerance walking on uneven ground in adjusting to transitioning movement patterns Rehab Potential: Patient has Good potential to achieve established physical therapy goals within the time frame outlined below, provided active participation in the physical therapy treatment plan and home program. Comorbid Conditions: Arthritis, Neurodegenerative disorder Personal Factors: Age, Sedentary lifestyle, History of falls Clinical Presentation: Stable Examination elements: 4+ Clinical Decision Making: Low complexity clinical decision making Functional Goals and Timeframes: PT Outpatient Goals PT Goal #1: Patient is able to stand single leg 10 seconds or greater without increased provocationof symptoms demonstrating improved balance. PT Goal #1 to be achieved by: 05/02/25 PT Goal #2: Patient is able to perform [id number] with correct strategies and without use of hands in 10 seconds or less demonstrating improved strength in overall functional mobility PT Goal #2 to be achieved by: 05/23/25 PT Goal #3: Patient is able to transfer himself on and off riding lawn more with minimal use of upper extremity and without pain provoked demonstrating increased strength gains and balance reducing his risk of falls PT Goal #3 to be achieved by: 05/23/25 PT Goal #4: Patient is able to ascend and descend 1 flight of stairs to access his lower level of his home demonstrating increased strength overall reducing risk of falls. PT Goal #4 to be achieved by: 05/23/25 Plan Patient was educated regarding evaluative findings, diagnosis, prognosis, potential risks and benefits of rehabilitation interventions. A collaborative effort was used to establish goals and plan of care. The patient was informed of the right to make decisions regarding care, including refusal of examination or treatment or selection of services from another provider if desired. The treatment plan may be progressed or modified based upon the patient's response to treatment. Physical Therapy Attestation Statement: Patient agrees with the plan of care and goals. Treatment Plan: Plan: Plan of care initiated Start of Plan of Care: 04/08/2025 Number of Visits:12 visits PT Duration: 8 weeks PT Frequency: 1 -2 x / week Treatment interventions may include: Treatment/Interventions: Therapeutic exercise, Therapeutic functional activity, Neuromuscular re-education, Gait training, Manual therapy, Self-care/home management, Therapeutic modalities as needed Plan for next session: Patient requests review use of weight resistive machines, progress with standing exercises for home program, introduce step-ups for accessibility of home and lateral step-downsfor gluteal strength to maintain level of functional mobility. Time Spent with Patient Evaluations PT Eval - Low Complexity: 28 min Therapeutic Interventions Therapeutic Exercise (min): 27 min Time Tracking Total Timed Units (min): 27 min Total Treatment Time (min): 55 min [1] Patient Active Problem List Diagnosis (none) - all problems resolved or deleted [2] No past surgical history on file. documented in this encounter Plan of Treatment Not on file documented as of this encounter Visit Diagnoses Diagnosis Repeated Falls- Primary Imbalance Non Orthopedic documented in this encounter
--- OUTSIDE RECORDS SUMMARY | 2025-04-16 06:45 | XMS_ITS | Encounter Summary ---
Author Organization [facility] Address [address] [place] [address] Care Team Providers Care Practice Management Consultant Name Role Phone Unavailable Primary Care Provider Unavailabl e Reason for Visit * Physical Therapy (Routine) - Authorized Specialty Diagnoses / Procedures Referred By Contac t Referred To Contact Diagnoses Repeated Falls Imbalance Non Orthopedic Procedures PT Ongoing treatment Aakash Schrader M.D. [address] [place] [phone] Phone: tel: fax: [facility] Referral ID Status Reason Start Date Expiration Date V isits Requested Visits Authorized [id number] Authorized 04/08/2025 07/09/2026 99 99 Encounter Details Date Type Department Care Team (Latest Contact Info) Description 04/16/2025 7:45 AM CDT Clinical Support Department of Physical Medicine and Rehabilitation in [place], [place] [address] [place] [phone] Aakash Schrader M.D. [address] [place] [phone] Stacie Knight, P.T. 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 - 04/16/2025 7:45 AM CDT Physical Therapy Outpatient Treatment Note SUBJECTIVE Patient's Name: Sami Mckinley Referring Provider: Aakash Schrader M.D. Visit Diagnosis: 1. Repeated Falls 2. Imbalance Non Orthopedic Reason for Referral: Balance and recent falls Onset Date: 03/07/25 Payor: MEDICARE / Plan: MEDICARE A AND B / Product Type: Medicare / No data recorded Epic Visit Count: 2 History of Present Illness: Patient is a 85-year-old male who presents today with history of left shoulder pain, low back pain, Parkinson's, and increasing number of falls recently. Patient indicateshis legs feel weaker and he feels more unsteady overall. Patient indicates he caught his toe while out in the garden and fell with no injury, and most recently was sitting in a lawn chair in the yd which tipped sending him to the ground with no injuries. Additional Staff Present During Session: none Patient/Caregiver Goals: Improve strength in his legs, reduce back pain in the morning Patient comments: Patient returns to physical therapy for follow up visit for generalized weakness and imbalance with resulting falls. Patient reports no significant changes since previous appointment. He describes exercises as going well. History of Present Illness Patient is a 85-year-old male who presents today with history of left shoulder pain, low back pain,Parkinson's, and increasing number of falls recently. Patient indicates his legs feel weaker and hefeels more unsteady overall. Patient indicates he caught his toe while out in the garden and fell with no injury, and most recently was sitting in a lawn chair in the yd which tipped sending him to the ground with no injuries. OBJECTIVE Pain: 3/10 Left shoulder and provoked with shoulder retraction Physical Exam Observation/Inspection: Patient is very pleasant and quiet 85-year-old male who presents this morning. Balance/Posture/Physical Status: Patient remains independent but does utilize hands to assist with stabilization and transitions Mobility/Transfers: Patient utilizes hands to assist with transfers on and off equipment. Gait/Stairs: Patient ambulates independently throughout his appointment today. Patient observed to utilize hands on railing and wall use needed. Patient encouraged to utilize hand on rail with some exercises to promote increased mobility and balance. Range of Motion: Upper Extremity Screen: Impaired left ROM - [...] old 14.8 Single leg stand eyes open: Right3 seconds Left 8.47 seconds Single leg stand eyes closed: Right 2 seconds Left 2 seconds Ortho Exam TREATMENT Treatment today consisted of: Therapeutic Exercise: Recumbent Bike for warm-up and subjective data is gathered 7:00 at Level 3 (seat 4) Leg Curl 3.0 plates 1 x 20 (seat 3,2) Leg Extension 1.0 plates 1 x 15 (seat 2,2) Hip abduction 2.5 plates 1 x 20 Hip adduction 3.0 plates 1 x 20 Standing calf stretch with 1/2 foam roller :45 as tolerated Standing heel raises x 10 Home Exercise Program/Education: Access Code: [email or web address] URL: [email or web address] Date: 04/08/2025 Prepared by: Stacie Knight Exercises [...] sets - 3-5 reps - 10 hold 04/16/25: - Forward Step Up - 2 x daily - 7 x weekly - 1 sets - 10 reps - Lateral Step Down - 2 x daily - 7 x weekly - 1 sets - 10 reps - Sidestepping - 2 x daily - 7 x weekly - 1 sets - 10 reps - Backwards Walking - 2 x daily - 7 x weekly - 1 sets - 10 reps - Heel Toe Raises with Counter Support - 2 x daily - 7 x weekly - 1 sets - 10 reps Patient reports good HEP compliance. Assessment & Plan Clinical Impression: Patient responds favorably to exercise but remains challenged with repetitionsand stabilization of the pelvis region. Overall patient's pain remains well managed throughout treatment session today with increased fatigue following. Patient remains motivated and willing to parti cipate with exercises today, and responds favorably to verbal cues and positive encouragement to push himself appropriately. Patient is appropriate for physical therapy at this time to improve his overall strength, balance and reduce risk of falls. Functional Goals and Timeframes: PT Goal #1: Patient is able to stand single leg 10 seconds or greater without increased provocationof symptoms demonstrating improved balance. PT Goal #1 to be achieved by: 05/02/25 PT Goal #2: Patient is able to perform [id number] with correct strategies and without use of [...] Goal #4 to be achieved by: 05/23/25 Physical Therapy Attestation Statement: Patient agrees with the plan of care and goals. Plan: Continue with current plan Number of Outpatient PT Visits: 12 Plan for next session: Continue to work with patient on core stabilization in open and closed chainpositions for optimal carryover to day-to-day tasks. Progress with dynamic exercises as able and incorporate and daily functional tasks. Treatment/Interventions: Therapeutic exercise, Therapeutic functional activity, Neuromuscular re-education, Gait training, Manual therapy, Self-care/home management, Therapeutic modalities as needed Time Spent with Patient Therapeutic Interventions Therapeutic Exercise (min): 44 min Time Tracking Total Timed Units (min): 44 min Total Treatment Time (min): 44 min documented in this encounter Plan of Treatment Not on file documented as of this encounter Visit Diagnoses Diagnosis Repeated Falls- Primary Imbalance Non Orthopedic documented in this encounter
--- OUTSIDE RECORDS SUMMARY | 2025-04-23 10:00 | XMS_ITS | Encounter Summary ---
Author Organization [facility] Address [address] [place] [address] Care Team Providers Care Picker Operator Name Role Phone Unavailable Primary Care Provider Unavailabl e Reason for Visit * Physical Therapy (Routine) - Authorized Specialty Diagnoses / Procedures Referred By Contac t Referred To Contact Diagnoses Repeated Falls Imbalance Non Orthopedic Procedures PT Ongoing treatment Aakash Schrader M.D. [address] [place] [phone] Phone: tel: fax: [facility] Referral ID Status Reason Start Date Expiration Date V isits Requested Visits Authorized [id number] Authorized 04/08/2025 07/09/2026 99 99 Encounter Details Date Type Department Care Team (Latest Contact Info) Description 04/23/2025 11:00 AM CDT Clinical Support Department of Physical Medicine and Rehabilitation in [place], [place] [address] [place] [phone] Aakash Schrader M.D. [address] [place] [phone] Stacie Knight, P.T. 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 - 04/23/2025 11:00 AM CDT Physical Therapy Outpatient Treatment Note SUBJECTIVE Patient's Name: Sami Mckinley Referring Provider: Aakash Schrader M.D. Visit Diagnosis: 1. Repeated Falls 2. Imbalance Non Orthopedic Payor: MEDICARE / Plan: MEDICARE A AND B / Product Type: Medicare / No data recorded Epic Visit Count: 3 Additional Staff Present During Session: none Patient comments: Patient returns to physical therapy for follow up visit for generalized weakness and imbalance with resulting falls. Patient reports he is tired at onset of his session today. He reports he slept well last night. He has been busy outside trimming bushes and shrubs. Patient reportsno significant changes since previous appointment. He describes exercises as going well but boring. History of Present Illness OBJECTIVE Pain: No formal rating. Patient reports he has his usual pains at onset of session. Physical Exam Observation/Inspection: Patient is very pleasant [...] for warm-up and subjective data is gathered 6:00 at Level 4 (seat 4) Calf Stretch with 1/2 foam roller 1:00 with cues for strategies AIREX heel raises x 20 AIREX march x 20 bilateral and alternating Leg Curl 3.0 plates 1 x 20 (seat 3,2) Leg Extension 1.0 plates 1 x 30 (seat 2,2) Hip abduction 2.5 plates 1 x 30 Hip adduction 3.0 plates 1 x 30 Leg Press 3.5 plates (seat 5) 1 x 30 Standing calf stretch with 1/2 foam roller :45 as tolerated Standing heel raises x 10 Sitting posture with tactile cues to sit erect on plinth x 3 or activation of back extensors, chestmuscles, and scapular retraction. Home management: Education provided for patient to trial a towel behind patient's thoracic region while seated in his recliner to improve his overall erection of his thoracic region reducing his kyphotic posture in neutralizing him in alignment. Home Exercise Program/Education: Access Code: [email or web address] URL: [email or web address] Date: 04/08/2025 Prepared by: Stacie Knight Exercises [...] weekly - 1 sets - 10 reps 04/23/25: Trial use of towel behind patient's thoracic region when seated in his recliner. Patient reports good HEP compliance. Assessment & Plan Clinical Impression: Patient responds favorably to exercise again today in his specially thoracic postural positioning in more erect neutralized position. Patient tolerates all exercises well with general fatigue but overall feels better post treatment. No specific pain elicited with exercises today in increased repetitions performed throughout focusing on generalized strengthening and improved core stabilization and pelvis mobility as tolerated. Patient remains motivated and willing to participate with exercises today, and responds favorably to [...] Goal #2: Patient is able to perform [id number] with correct strategies and without use of [...] #4 to be achieved by: 05/23/25 Plan for next session: Continue to work with patient on core stabilization in open and closed chainpositions for optimal carryover to day-to-day tasks and home exercise program. Progress with dynamic exercises as able and incorporate and daily functional tasks. Optimize home exercise program for patient to continue independently. Time Spent with Patient Therapeutic Interventions Therapeutic Exercise (min): 43 min Time Tracking Total Timed Units (min): 43 min Total Treatment Time (min): 43 min documented in this encounter Plan of Treatment Not on file documented as of this encounter Visit Diagnoses Diagnosis Repeated Falls- Primary Imbalance Non Orthopedic documented in this encounter
[2025-05-21] VITALS (12 sets, daily range): BP systolic 155–187; BP diastolic 102–118; PULSE 73–88; RESP 7–22; TEMP 36.7; O2SAT 95–99; BMI 26.2
--- OUTSIDE RECORDS SUMMARY | 2025-05-21 12:32 | XMS_ITS | Clinical Summary ---
Author Organization [facility] Address [address] [place] [address] Care Team Providers Care Custom Shoemaker Name Role Phone Unavailable Primary Care Provider Unavailabl e Source Comments Patient records contain information from all sites at [facility]. For routine questions regarding patient records, call [phone] during business hours, M-F 8:00 AM - 5:00 PM Central Time. Record requests for emergency care only can be directed to [phone] at any time.[facility] Encounters Date Type Department Care Team Description 04/23/2025 11:00 AM CDT Clinical Support Department of Physical Medicine and Rehabilitation in [place], [place] [address] [place] [address] Aakash Schrader M.D. Ambroz, Colleen P, P.T. Repeated Falls (Primary Dx); Imbalance Non Orthopedic 04/16/2025 7:45 AM CDT Clinical Support Department of Physical Medicine and Rehabilitation in [place], [place] [address] [place] [address] Aakash Schrader M.D. Ambroz, Colleen P, P.T. Repeated Falls (Primary Dx); Imbalance Non Orthopedic 04/08/2025 1:30 PM CDT Comprehensive Visit Department of Physical Medicine and Rehabilitation in [place], [place] [address] [place] [address] Stacie Knight P, P.T. 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 Pulse 61 09/13/2012 12:52 PM FRAME ALIGNER Vital sign result from Clinical Notes. Temperature - - Respiratory Rate - - Oxygen Saturation - - Inhaled Oxygen Concentration - - Weight 62.6 kg (138 lb 0.1 oz) 09/13/2012 12:52 PM FRAME ALIGNER Vital sign result from Clinical Notes. Height 159 cm (5' 2.6) 04/24/2012 1:11 PM CDT Vital sign result from Clinical Notes. Body Mass Index 24.76 04/24/2012 1:11 PM CDT Plan of Treatment Health Maintenance Due Date Last Done Comments Depression Screening (Annual PHQ-2) 07/17/2024 Fall Risk Screen (Annual) 07/17/2024 COVID-19 Vaccine ( season) 2025 04/12/2022, 10/29/2021, 04/23/2021, Additional history exists Influenza Vaccine (#1) 2025 , 04/12/2022, 04/23/2021, Additional history exists DTaP,Tdap,and Td Vaccines (3 - Td or Tdap) 04/24/2033 04/24/2023, 05/30/2012, 09/05/2007 Pneumococcal vaccine (50+ years) Completed 08/05/2014, 04/16/2011, 07/07/2010, Additional history exists Zoster Vaccines Completed 02/19/2018, 10/16, 10/23/2007 RSV vaccine - (32-36 weeks) or 50+ years Completed 08/01/2023 IPV Vaccines Aged Out No longer eligi ble based on patient's age to complete this topic Insurance [facility] MEDICARE
--- OUTSIDE RECORDS SUMMARY | 2025-05-21 12:32 | XMS_ITS | Clinical Summary ---
Author Organization [facility] Address [address] [place] [address] Care Team Providers Care Instrument Processing Tech Name Role Phone Unavailable Primary Care Provider Unavailabl e Source Comments You are receiving this document as you are listed as the primary care provider,follow-up provider, or the patient has been referred to you for consultation.This is in compliance with the Medicare andMedicaid EHR Incentive Program,which states Providers who transition their patient to another setting of careor provider of care or refers their patient to another provider of care shouldprovide summary care record for each transition of care or referral. [facility] Allergies No known active allergies Medications aspirin 81 MG chewable tablet Chew and swallow 1 Tablet (81 mg) by mouth daily. 07/26/2022 Active ipratropium (ATROVENT) 0.06 % nasal solution Place 2 Sprays into both nostrils three times a day. 09/25/2022 Active omega-3 fatty acids (FISH OIL) 1000 MG capsule Take 2 Capsules (2,000 mg) by mouth daily. Active Multiple Vitamins-Iron (MULTIVITAMIN/I LAKIA OR) Active Garlic 2 MG Active SHARK CARTILAGE OR Active carbidopa-levod opa (SINEMET) 25-100 MG tablet Take 2 Tablets by mouth three times a day. 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 Oxygen Saturation - - Inhaled Oxygen Concentration - - Weight - - Height - - Body Mass Index - - Plan of Treatment Upcoming Encounters Date Type Department Care Team (Late st Contact Info) Description 10/14/2025 11:40 AM CDT Appointment [facility] [address] [place], [place] [id number] Chalo Schrader MD [address] [place], [place] [phone] Health Maintenance Due Date Last Done Comments Medicare Annual Wellness Visit 1940 RSV Vaccine (1 - 1-dose 75+ series) 2017 COVID-19 Vaccine ( season) 2025 04/04/2024, 04/12/2022, 10/29/2021, Additional history exists Influenza Vaccine (#1) 2025 , 04/06/2023, 04/12/2022, Additional history exists DTaP/Tdap/Td Vaccine (3 - Tdap) 04/24/2033 04/24/2023, 05/30/2012, 09/05/2007 Pneumococcal Vaccine 50+ Yrs Completed , 04/16/2011, 07/07/2010, Additional history exists Zoster/Shingles Vaccine Completed 02/20/20 18, 11/08/2017, 10/23/2007 HepA Vaccine Aged Out No longer eligi ble based on patient's age to complete this topic HepB Vaccine Aged Out No longer eligi ble based on patient's age to complete this topic Hib Vaccine Aged Out No longer eligi ble based on patient's age to complete this topic MCV4 Vaccine Aged Out No longer eligi ble based on patient's age to complete this topic Meningococcal B Vaccine Aged Out No l onger eligible based on patient's age to complete this topic Insurance MEDICARE MANAGED CARE [facility] [place]
--- NOTE | 2025-05-21 12:40 | ED.GENADULT ---
HPI - General Adult General Chief complaint: Neuro Symptoms/Altered Deficit Stated complaint: Possible stroke--face drooping Time Seen by Provider: 05/21/25 12:32 History of Present Illness HPI narrative: Pt reports a friend noticed he had right?sided facial droop around 1100 today. Pt does appear to have some right -sided mouth droop, however all other neuros appear intact in triage. Pt has control of facial movements, can smile, can lift right eyebrow, and move tongue to right side without issue. Pt is A& Ox4. Pt denies any other complaints at this time. Pt takes daily aspirin. Pt does have dx Parkinsons. 85-year-old man presenting to the emergency department with concern of potential CVA. In a pharmacist friend who admittedly had not seen them in quite a while head stop by the house as they are clarifying insurance issues. Concerned then was expressed over right-sided lower facial droop; that potentially Mr. Mckinley had experienced a stroke recommending then that they be seen. Try to get a primary care appointment but were directed to the emergency department. Underlying history of Parkinson's. Over the last few months has been experiencing more fatigue. Has also been having increasing difficulty with gait. No recent falls. Has no sensory deficits. No headache. Otherwise well. Prior to coming here decided to just take a moment and have breakfast and he would now like to return home if possible. No sense of irregular heartbeats or unusual shortness of breath. Otherwise is treating constipation with large amounts of prune juice spouse says. Does have a history of some double vision in the right field of view - this is chronic. Does take daily aspirin. Related Data Home Medications ?Medication ?Instructions ?Recorded ?Confirmed Get Alert PO 04/24/23 05/28/24 aspirin 81 mg tablet,delayed 81 mg PO QDAY 04/24/23 03/21/25 release garlic 500 mg capsule 500 mg PO QDAY 04/24/23 03/21/25 multivitamin 1 tab PO QDAY 04/24/23 03/21/25 omega 5-mih-mqj-fish oil 60 mg-90 1 cap PO QDAY 04/24/23 03/21/25 mg-500 mg capsule (Fish Oil) psyllium husk 0.4 gram capsule 0.4 g PO QDAY 04/24/23 03/21/25 (Daily Fiber) shark cartilage 500 mg capsule 500 mg PO QDAY 04/24/23 03/21/25 carbidopa ER 25 mg-levodopa 100 mg 2 tab PO TID 09/22/23 03/21/25 tablet,extended release naproxen sodium 220 mg capsule 220 mg PO BID PRN 05/28/24 03/21/25 (Aleve) Previous Rx's ?Medication ?Instructions ?Recorded ipratropium bromide 42 mcg (0.06 See Rx Instructions .Route 05/28/24 %) nasal spray .COMPLEX #45 mL triamcinolone acetonide 0.1 % 1 applic dental BID #5 grams 03/21/25 dental paste Allergies Allergy/AdvReac Type Severity Reaction Status Date / Time No Known Drug Allergies Allergy Verified 03/21/25 14:33 Review of Systems Status of ROS: Reports: 6 or more systems reviewed and unremarkable except as noted in History and below [facility] Medical History Health care directive on file ?Z78.9 - Other specified health status (ICD-10) Health belief conflict Surgical History S/P tonsillectomy ?Z90.89 - Acquired absence of other organs (ICD-10) S/P appendectomy ?Z90.49 - Acquired absence of other specified parts of digestive tract (ICD-10) S/P inguinal hernia repair ?Z98.890 - Other specified postprocedural states (ICD-10) ?Z87.19 - Personal history of other diseases of the digestive system (ICD-10) S/P prostatectomy ?Z90.79 - Acquired absence of other genital organ(s) (ICD-10) Social History What is your current living situation?: I presently have a place to live Problems where you live: no known problems In the past 12 months, utilities in danger of being shut off: no In past 12 months, lack of transportation kept you from medical appts, meetings, work, or getting things needed for daily living: no In the past 12 mos, have been you worried that your food would run out before you had money to buy more?: never true In the past 12 mos, the food you bought just didn't last and you didn't have money to buy more?: never true Smoking Status: Never smoker How often does anyone, including family, friends and others, physically hurt you: never How often does anyone, including family, friends and others, insult or talk down to you: never How often does anyone, including family, friends and others, threaten you with harm: never How often does anyone, including family, friends and others, scream or curse at you: never Exam Narrative: Exam Narrative: Very pleasant. Subtly tremulous facial movements with effort. Pupils are 3 mm and equal. Extraocular movements are intact. No nystagmus appreciated. Moving all extremities with what appears to be normal strength. No sensory loss. Heart in regular rate and rhythm without murmur rub or gallop. Extremities are well perfused without edema. At rest does have clearly lower right side of his mouth. Has full strength otherwise throughout his face and able to raise the right corner of his mouth without any difficulty in a smile. 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 There is some flattening of the right nasal labial fold relative to the left. Const: Vital Signs, click to edit/add: Vital Signs - 24 hr 05/21/25 12:35 05/21/25 12:50 05/21/25 12:51 Temperature 98.0 F Pulse Rate 87 86 Pulse Rate [Pulse Oximeter] 77 Respiratory Rate 16 19 17 Blood Pressure 187/118 H Blood Pressure [Ri ght Upper Arm] 174/102 H Pulse Oximetry 99 98 98 Oxygen Delivery Me thod Room Air 05/21/25 13:00 05/21/25 13:02 05/21/25 13:15 Temperature Pulse Rate 85 79 75 Pulse Rate [Pulse Oximeter] Respiratory Rate 16 18 12 Blood Pressure 176/105 H Blood Pressure [Ri ght Upper Arm] Pulse Oximetry 97 96 96 Oxygen Delivery Me thod 05/21/25 13:17 Temperature Pulse Rate 88 Pulse Rate [Pulse Oximeter] Respiratory Rate 7 L Blood Pressure 169/104 H Blood Pressure [Ri ght Upper Arm] Pulse Oximetry 97 Oxygen Delivery Me thod Room Air Documenting provider has reviewed patient's vital signs: yes Course Vital Signs Vital signs: Initial Vital Signs Temperature 98.0 F 05/21/25 12:35 Temperature Source Temporal Artery Scan 05/21/25 12:35 Pulse Rate 77 05/21/25 12:35 Respiratory Rate 16 05/21/25 12:35 Blood Pressure 174/102 H 05/21/25 12:35 Blood Pressure Mean 126 H 05/21/25 12:35 Blood Pressure Position Sitting 05/21/25 12:35 Pulse Oximetry 99 05/21/25 12:35 Oxygen Delivery Method Room Air 05/21/25 12:35 Vital Signs Temperature 98.0 F 05/21/25 12:35 Pulse Rate 77 05/21/25 12:35 Respiratory Rate 16 05/21/25 12:35 Blood Pressure 174/102 H 05/21/25 12:35 Pulse Oximetry 99 05/21/25 12:35 Oxygen Delivery Method Room Air 05/21/25 12:35 Temperature 98.0 F 05/21/25 12:35 Pulse Rate 88 05/21/25 13:17 Respiratory Rate 7 L 05/21/25 13:17 Blood Pressure 169/104 H 05/21/25 13:17 Pulse Oximetry 97 05/21/25 13:17 Oxygen Delivery Method Room Air 05/21/25 13:17 Medical Decision Making MDM Narrative Medical decision making narrative: Watching property assessment monitor does appear to be in a sinus rhythm. I think this case is a little more complicated given underlying Parkinson's. Does not appear to have any motor deficits here today. I do think this is likely more incidental finding partly certainly not recent. I did ask spouse to look up some pictures on her phone going back a little ways. Clearly has he lower right lower face in pictures from mid April and in January of this year. Perhaps there has been some sort of lacunar infarct at some point but I think unlikely that this was anything recent. Will discuss with Stroke Neuro for further recommendations at this point. Takes low-dose daily aspirin. Reviewing records shows a brain MRI February of 2022 done in the setting of Parkinson's. Chronic [id number] microvascular ischemic changes mild diffuse cerebral volume loss is noted. Head CT a in July 2022 for a right cranial nerve for palsy was without evidence of any aneurysm and with normal opacification of intracranial vasculature. Without large vessel occlusion. Brain MRI done at that time as well with same chronic changes. Discussed with Stroke Neuro. Concur that unlikely to be anything emergent here in particular if Mr. Mckinley feels he looks familiar, normal to himself. I do return with a mirror for him and reports that he looks same as usual. We did spend some time in conversation about how strokes can present and changes that might be anticipated as Parkinson's might progress. See patient discharge plan for further discussion Stay well-hydrated. I understand the concern prompting your visit today. Does appears as though this is nothing new though might be more noticeable over time with Parkinson's. You might consider following up outpatient to discuss this further and whether or not you might want to do some imaging but do not need to address that here today. Continue your daily aspirin. It was a real pleasure taking care of you today. Medical Records Medical records reviewed: Yes I reviewed the patient's medical records Discharge Plan Discharge Clinical Impression: Facial asymmetry, Parkinson's disease Patient Disposition: Home w/ Parent or Adult Condition: Improved Additional Instructions: Stay well-hydrated. I understand the concern prompting your visit today. Does appears as though this is nothing new though might be more noticeable over time with Parkinson's. You might consider following up outpatient to discuss this further and whether or not you might want to do some imaging but do not need to address that here today. Continue your daily aspirin. It was a real pleasure taking care of you today. Prescriptions: No Action naproxen sodium [Aleve] 220 mg capsule 220 mg PO BID PRN ipratropium bromide 42 mcg (0.06 %) spray,non-aerosol See Rx Instructions .ROUTE .COMPLEX Qty: 45 11RF Dose Instruction: USE 2 SPRAY(S) IN EACH NOSTRIL THREE TIMES DAILY Rx Instructions: USE 2 SPRAY(S) IN EACH NOSTRIL THREE TIMES DAILY triamcinolone acetonide 0.1 % paste 1 applic dental BID Qty: 5 3RF Rx Instructions: use after food and/or drink and/or oral hygiene multivitamin Tablet 1 tab PO QDAY omega 5-vox-nhf-fish oil [Fish Oil] 60-90-500 mg capsule 1 cap PO QDAY garlic 500 mg capsule 500 mg PO QDAY shark cartilage 500 mg capsule 500 mg PO QDAY aspirin 81 mg tablet,delayed release (DR/EC) 81 mg PO QDAY Get Alert PO psyllium husk [Daily Fiber] 0.4 gram capsule 0.4 g PO QDAY carbidopa-levodopa 25-100 mg tablet extended release 2 tab PO TID Follow Up/Referrals: Mati Powell MD [Primary Care Provider, Family Practice] Stand Alone Forms: [employer] Info Instructions
--- OUTSIDE RECORDS SUMMARY | 2025-05-21 13:07 | XMS_ITS | Patient Health Record ---
Author Organization [facility] Address [address] [place] [address] Care Team Providers Care Encapsulator Name Role Phone Juliocesar Powell Primary Care Provider JEFFREY Dominguez Unavailable [phone] Allergies No Known Allergies Reason For Referral No Information Medications Medication SIG (Take, Route, Fr equency, Duration) Notes Start Date End Date Status ASA Active Celecoxib Active Ipratropium [place] Active Social History Tobacco Use: Social History Observation Description Date Details (start date - stop date) Never Smoker NA - NA Social History Alcohol Use: Social Info Question Answer Notes Alcohol Screen Did you have a drink containing alcohol in the past year? Yes How often did you have a drink containing alcohol in the past year? Monthly or less (1 point) How many drinks did you have on a typical day when you were drinking in the past year? 1 or 2 drinks (0 point) How often did you have 6 or more drinks on one occasion in the past year? Never (0 point) Points 1 Interpretation Negative Tobacco Use: Social Info Question Answer Notes Tobacco use/smoking Are you a nonsmoker Problems Problem Type SNOMED Code ICD Code Onset Dates Problem Status W/U Status Risk Notes Problem Allergic rhinitis (11568035) VMR (vasomotor rhinitis) (J30.0) Active confirmed Plan Of Treatment No Information Insurance Providers Payer Name Payer Address Payer Phone Subscriber Number Group Number Insured Name Patient Relationship to Insured Coverage Start Date Coverage End Date MEDICARE [address] [place] [address] [id number] Sami Mckinley Self - patient is the insured [facility] SECOND TO MEDICARE [address] [place], [place] [id number] Sami Mckinley Self - patient is the insured Medical (General) History Medical History History ICD Code Skin and prostate cancer CV booster 04/2021 Surgical History Surgery Date(Month/Year) Hernias x 3 Tonsils Appendix
== END 2025-05-21 13:56 | disposition home or self-care (01) ==
PROVIDERS: Emergency Provider Family Medicine; PCP Family Medicine
DX: R29.810 Facial weakness (principal); G20.A1 Parkinson's disease without dyskinesia, without mention of fluctuations
CPT/HCPCS: 99283; 99284